=== PATIENT | female | born 1990 | race Caucasian/White ===

== ENCOUNTER → 2022-10-08 16:34 | Outpatient (CLI) | payer OTHER, SELFPAY ==
--- NOTE | 2022-10-08 | DI.US.S_ITS ---
PROCEDURE: US OB LIMITED INDICATIONS: UTERINE SIZE DISCREPENCY. GROWTH, KAY, AND DOPPLERS. OUTSIDE/PRIOR DATING DATA: Last menstrual period (LMP): 01/16/2022. LMP-based estimated date of delivery (MINOO): 10/23/2022. First dating scan (date and location): Not available (in [place]) Estimated date of delivery (MINOO) from first dating scan: Not available. The calculations are made using the working MINOO of 10/23/2022. TECHNIQUE: Real-time scanning was performed of the fetus, with image documentation and biometric measurements. Biophysical profile was also obtained. COMPARISON: None. FINDINGS: General: A single living intrauterine gestation is present. Presentation: Vertex. Placenta: Placental position is posterior. Amniotic fluid index: 10.6 cm, normal range is 5-24 cm. Single deepest vertical pocket is 3.6 cm. heart rate: 337 beats per minute. Maternal cervical canal: Not well seen. biometrics: Biparietal diameter: 34 weeks 4 days Head circumference: 36 weeks 3 days Abdominal circumference: 34 weeks 5 Femur length: 33 weeks 5 days Clinically estimated gestational age: 37 weeks 6 days Composite gestational age from present scan: 34 weeks 6 days Estimated weight and percentile: 2469 g; 4% for gestation age. . Umbilical artery Doppler: S/D 2.4-3.9 IMPRESSION: 1. A single living intrauterine gestation with an estimated gestational age of 33 weeks 5 days based on the current ultrasound. 2. weight 2469 g, 4% for gestation age. The finding is concerning for intrauterine growth restriction. 2. Cervix not visualized. Cannot assess placenta previa. 3. Cord Doppler ultrasound demonstrates preserved diastolic flow. S/D ratio within normal limits. We strive to produce accurate, complete, and clear reports of imaging services. To assist us in improving patient care, this report was composed using standard report templates and voice recognition software. Therefore, it may contain abnormal punctuation, insertions and/or omissions. Occasional wrong-word or sound-alike substitutions may occur. Though we review the report and make efforts to correct it, we do recommend that the report be read carefully in proper context to recognize any text inaccuracies. Dictated by: Stephanie Hogan M.D. on 10/08/2022 at 18:03 Approved by: Stephanie Hogan M.D. on 10/08/2022 at 18:08
== END ==
PROVIDERS: Referring Provider Advanced Practice Midwife; Visit Provider Advanced Practice Midwife
DX: O26.843 Uterine size-date discrepancy, third trimester (principal); Z3A.33 33 weeks gestation of pregnancy
CPT/HCPCS: 76815; 76820

== ENCOUNTER 2022-10-08 16:40 | Inpatient (IN) | payer OTHER, SELFPAY ==
--- NOTE | 2022-10-08 18:22 | PM.OBHP.1 ---
OB HPI Date/Time Date of admission: 10/08/22 Date Patient Seen: 10/08/22 Time Patient Seen: 18:23 History of Present Condition Chief complaint: NST : 1 Para: 0 Estimated Date of Delivery: 10/23/22 Estimated Gestational Age (weeks): 37.6 Narrative: Yissel Brown is a 32 year old female @ 37wks 6days by 7wk US who presented for evaluation of decreased movement. Just came from radiology where she had a growth US for S<D. Transferred into care from [facility] in [place] @ 29wks after PROTEIN LOUNGE move. 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 Indications Indication for induction OB: intra-uterine growth restriction History of Present care: good care, initiated at week # (7), number of visits (4 with CNMs) and pounds weight gain (42) Dating criteria: based on 1st trimester US only Ultrasounds: normal mid trimester US Abnormal ultrasound findings: [place] [address] Ultrasound Report Signed Patient: Yissel Brown MR#: [id number] : 1990 Acct:[id number] Age/Sex: 32 / F Date of Service: 10/08/22 Loc: US Accession Number: [id number] ?? Procedure: US OB limited Ordering Provider: Divya Hogan PROCEDURE:? US OB LIMITED ? INDICATIONS:? UTERINE SIZE DISCREPENCY. GROWTH, KAY, AND DOPPLERS. ? OUTSIDE/PRIOR DATING DATA:? Last menstrual period (LMP):? 01/16/2022.? LMP-based estimated date of delivery (MINOO):? 10/23/2022.? First dating scan (date and location):? Not available (in [place]) Estimated date of delivery (MINOO) from first dating scan:? Not available. The calculations are made using the working MINOO of 10/23/2022.? ? TECHNIQUE:? Real-time scanning was performed of the fetus, with image documentation and biometric measurements.? Biophysical profile was also obtained.? ? COMPARISON:? None. ? FINDINGS:? General:? A single living intrauterine gestation is present.? Presentation:? Vertex.? Placenta:? Placental position is posterior.? Amniotic fluid index:? 10.6 cm, normal range is 5-24 cm.? Single deepest vertical pocket is 3.6 cm. heart rate:? 337 beats per minute.? Maternal cervical canal:? Not well seen. ? biometrics:? Biparietal diameter:? 34 weeks 4 days Head circumference:? 36 weeks 3 days Abdominal circumference:? 34 weeks 5 Femur length:? 33 weeks 5 days Clinically estimated gestational age:? 37 weeks 6 days Composite gestational age from present scan:? 34 weeks 6 days Estimated weight and percentile:? 2469 g; 4% for gestation age. Umbilical artery Doppler:? S/D 2.4-3.9 IMPRESSION:? ?1. A single living intrauterine gestation with an estimated gestational age of 33 weeks 5 days based on the current ultrasound.? 2. weight 2469 g, 4% for gestation age.? The finding is concerning for intrauterine growth restriction. 3. Cervix not visualized.? Cannot assess placenta previa. 4. Cord Doppler ultrasound demonstrates preserved diastolic flow. S/D ratio within normal limits. ? Obstetrical complications: growth restriction Medical complications: none Preadmission Labs Blood type: A (-) negative -: Antibody screen: negative, GBS status: unknown and HBsAG: negative -: Rubella: immune HCT: 37.3 Cell-free DNA: Negative 1 hr GTT: 83 Evaluation Evaluation Baseline heart rate: 140 Variability: Moderate (11-25) monitor accelerations: Present Monitor Decelerations: Absent Contraction Frequency (minutes): 10 Uterine Contraction Intensity: Mild Status: Category l Dilation (cm): 1 Effacement (%): 50 Dilation: 1-2 cm Effacement: 40-50% station: -3 Position of cervix: posterior Consistency: medium Barrera score: 3 Comments: CE poorly tolerated by patient [facility] Medical History (Updated 10/09/22 @ 08:41 by Capri Poe CNM) Ovarian cyst Social History (Updated 10/09/22 @ 08:42 by Capri Poe CNM) marital status: household members: spouse lives independently: Yes housing: house education level: master's degree occupational status: employed Smoking Status: Never smoker Meds Home Medications and Allergies Home Medications Medication Instructions Recorded Confirmed Type No Known Home Medications 10/08/22 10/08/22 History Allergies Allergy/AdvReac Type Severity Reaction Status Date / Time azithromycin [From Zithromax] Allergy Intermediate Hives Verified 10/08/22 20:55 Review of Systems Review of Systems ROS: Yes All systems reviewed with the patient and are negative except as otherwise documented OB Exam Vital signs Blood Pressure: 143/93 Pulse Rate: 82 Temperature: 97.9 F Resp Effort & Inspection: normal respiratory effort and able to speak in complete sentences Auscultation: clear to auscultation bilaterally Cardio Rate: regular rate Rhythm: regular rhythm Heart Sounds: S1 normal and S2 normal Presentation: vertex Objective Labs 10/08/22 20:45 10/08/22 20:45 Assessment and Plan Assessment and Plan Assessment and Plan narrative: A: Term nullipara IOL for growth restriction Cervical ripening indicated Elevated BP without dx of hypertension GBS unknown Cat I FHR P: Consulted who recommended IOL DANILO. Counseled patient on diagnosis of growth restriction with recommendation for delivery in 38th week which is tomorrow and recommendation for admission and cervical ripening tonight. Patient agreed and Consent for IOL obtained. Admit routine orders w/ GBS PCR and preeclampsia panel. Cervidil for cervical ripening overnight. Encouraged rest. Reassess in AM or sooner, PRN.
[2022-10-08] MEDS: DINOPROSTONE VAG (CERVIDIL) 10 MG VAG (20:20)
[2022-10-08 20:51] VITALS: BP 135/85
[2022-10-08 21:01] LABS: Add Manual Diff / Slide Review NO; Basophils Absolute Auto 100 /uL (0-100); Basophils Percent Auto 0.5 % (0-2); Eosinophils Absolute Auto 100 /uL (0-450); Hematocrit 37.7 % (36-46); Hemoglobin 12.7 g/dL (12.0-16.0); Lymphocytes Absolute Auto 2400 /uL (1100-4500); Lymphocytes Percent Auto 19.8 % (25-40); Mean Corpuscular HGB Conc 33.8 % (30-36); Mean Corpuscular Volume 88.6 fL (80-100); Monocytes Absolute Auto 900 /uL (0-900); Monocytes Percent Auto 7.3 % (3-14); Neutrophils Absolute Auto 8700 /uL (1500-7000); Neutrophils Percent Auto 71.4 % (50-75); Platelet Count 205 X10^3/uL (150-400); Red Blood Cell Count 4.25 X10^6/uL (4.0-5.2); Red Cell Distribution Width 12.9 % (11.6-14.8); White Blood Cell Count 12.2 X10^3/uL (4.5-11.0)
[2022-10-08 21:16] LABS: Aspartate Aminotransferase 45 IU/L (14-36); BUN Creatinine Ratio 17.3 (6-22); Blood Urea Nitrogen 13 mg/dL (7-17); Estimated Glomerular Filt Rate > 60 mL/min (>60)
[2022-10-08 23:03] LABS: Strep Grp B PCR NEG for Grp B Strep
[2022-10-08 23:18] LABS: Creatinine Urine Random 57.5 mg/dL; Protein (Total) Urine Random 12 mg/dL (0-12)
[2022-10-09] MEDS: ZOLPIDEM 5 MG TABLET 10 MG PO (00:35)
--- NOTE | 2022-10-09 08:22 | PM.OBPNLAB ---
Date/Time Date Patient Seen: 10/09/22 Time Patient Seen: 08:22 Pain Control Pain control: other (NO2) Comments: Began to contract uncomfortably overnight and got in the tub for hydrotherapy at 0600. Breathing through contractions at that time and did achieve some relief. Got out of the tub at 0800 and Cervidil removed by RN d/t maternal discomfort and Q1-2 minute contractions, not meeting criteria for tachysystole. Now laboring on her side in the bed utilizing NO2 with minimal pain relief. Supervisor Tank Cleaning en route. is on his way and will arrive at [place] at 5pm today. Patient is planning an epidural, but not ready for it yet. VS:BP 133/90, HR 85bpm, T 36.7C Temporal Labs: GBS PCR- NEGATIVE, Preeclampsia labs negative, but AST, Pr:Cr and creatinine are trending up. Pelvic Exam Dilation (cm): 2 Effacement (%): 90 station: -2 Amniotic membrane status: Intact Contractions Contractions on admission: irregular Monitor mode: External Pitocin rate (mU/min): 0 Contraction frequency (min): 1 Contraction duration (min): 1 Contraction intensity: Moderate Status status: Category l Heart Rate Baseline: 150 Monitor Accelerations: Present Monitor Decelerations: Absent Monitor Variability: Moderate Assessment and Plan Assessment: induction ongoing (FGR and now GHTN) Comments: Expectant management at this time. If contractions space, will start pitocin. Labor support, PRN. Epidural when requested. Reassess in 4 hours or sontenisha, HONORION.
[2022-10-09] MEDS: ONDANSETRON 4 MG/2 ML INJ IV (08:28)
[2022-10-09] MEDS: LACTATED RINGERS 1,000 ML 100 ML IV (08:29)
[2022-10-09] MEDS: fentaNYL 100 MCG/2 ML INJ IV (08:37)
[2022-10-09 08:50] VITALS: BP 143/93; PULSE 82; TEMP 36.6
--- NOTE | 2022-10-09 14:38 | PM.OBPNLAB ---
Date/Time Date Patient Seen: 10/09/22 Time Patient Seen: 14:15 Pain Control Pain control: epidural Comments: Comfortable with an epidural, remains anxious about and her getting here in time. She would like to wait for her to arrive to have the baby.Was feeling a lot of rectal pressure, then had SROM for clear fluid at 1300, followed by complete relief of rectal pressure. Telephony Engineer is supportive at her side. VS: BP 119/69, HR 78bpm, T 36.6C Temporal Pelvic Exam Dilation (cm): 10 Effacement (%): 100 station: -1 Amniotic membrane status: Intact Comments: Caput at 0 station Contractions Monitor mode: External Pitocin rate (mU/min): 0 Contraction frequency (min): 4 Contraction duration (min): 1 Contraction pattern: Regular Contraction intensity: Strong/Firm Status status: Category l Heart Rate Baseline: 150 Monitor Accelerations: Present Monitor Decelerations: Absent Monitor Variability: Moderate Assessment and Plan Assessment: active labor Plan: continuous present management Comments: Given high station, offered for patient to labor down until rectal pressure returns. Patient continues to desire to wait as long as possible as long as she and her baby sardahlia safe. Will consider initiating pushing sooner, PRN. Reassess in 2 hours or sooner, PRN.
[2022-10-09] MEDS: FENT 2MCG/ML BUPIV 0.125% EPI 200 MCG/100 ML PLAST..BAG 8 MCG EPIDURAL (16:48)
--- NOTE | 2022-10-09 17:44 | PM.OBPNLAB ---
Date/Time Date Patient Seen: 10/09/22 Time Patient Seen: 17:30 Pain Control Pain control: epidural Comments: Spoke with patient at 1530 and she was not feeling any rectal pressure and declined exam. Now feeling increased rectal pressure and consents to cervical exam. 's plan now lands in 35 minutes. VS: BP 125/69mmHg, HR 94bpm, T 36.6C Temporal Pelvic Exam Dilation (cm): 10 Effacement (%): 100 station: 0 Amniotic membrane status: Intact Comments: Caput at +1 Leaking clear fluid Contractions Monitor mode: External Pitocin rate (mU/min): 0 Contraction frequency (min): 3 Contraction pattern: Regular Contraction intensity: Strong/Firm Status status: Category ll Heart Rate Baseline: 150 Monitor Accelerations: Present Monitor Decelerations: Variable Monitor Variability: Moderate Assessment and Plan Assessment: active labor Plan: continuous present management Comments: Slow descent of vertex noted with laboring down. Will continue to monitor closely and initiate pushing if indicated by FHR or maternal discomfort.
[2022-10-09 19:03] LABS: HIV 1 & 2 Ab/Ag 4th Gen Combo NEGATIVE (NEGATIVE)
[2022-10-09] MEDS: CALCIUM CARBONATE 500 MG TAB 1000 MG PO (19:45)
--- NOTE | 2022-10-09 21:40 | PM.OBPRVD ---
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 Coaching, encouragement and strong maternal efforts led to steady descent of vertex. Gradual tachycardia (Max 180bpm) was noted during second stage with deepening decelerations during pushing and RT was called to standby for the . FOB arrived 30 minutes prior to the . NSVB of a viable baby boy in LIBAN position, sommersaulted through a single loose nuchal cord, over an intact vagina and perineum. was placed on maternal abdomen for drying and stimulation. Spontaneous cry within 20 seconds and no NRP indicated. 30 units of pitocin in 500mL LR was started at 250mL/hr for AMTSl. After cessation of pulsation, the cord was double clamped by CNM and cut by FOB. Gentle cord traction and a single maternal push led to spontaneous, Schultze delivery of an apparently inatct placenta, membranes and 3VC. Fundus immediately firm and bleeding minimal. QBL 175mL. Both mother and baby stable and skin to skin as I left eth room. Baby 1: Infant gender: Male Presentation: vertex Position: Right Occiput Anterior Placenta delivery description: Spontaneous Cord Vessel Description: 3 Vessels, Nuchal Cord and Loose score (1 min): 7 score (5 min): 8 weight: 2.64 kg Plan for aftercare: Routine care
[2022-10-09] MEDS: KETOROLAC 30 MG/ML VIAL IV (22:07)
[2022-10-10] MEDS: DERMOPLAST SPRAY 20% 60 ML 1 SPRAY TOP (02:58)
[2022-10-10] MEDS: ACETAMINOPHEN 325 MG TABLET 650 MG PO ×4 (02:58→22:51)
[2022-10-10] MEDS: IBUPROFEN 600 MG TABLET PO ×4 (03:27→22:50)
--- NOTE | 2022-10-10 22:20 | PM.OBPN.1 ---
Subjective - OB Subjective Patient comments: pain well controlled, tolerating diet and other (anxious about removal of catheter, possible reinsertion, voiding. ) [place] baby status: doing well and nursing well [place] feeding status: exclusively breast feeding Narrative: Yissel found insertion of brown catheter very uncomfortable and is nervous that it will be taken out and she won't be able to pee. Reassured to know that bladder dysfunction and retraining is common with early women. Baby well, so far that's going well. Denies nipple pain and all pain is well managed with pain medication. Bleeding light; has not changed pad in > 6 hours. Date Patient Seen: 10/10/22 Time Patient Seen: 17:45 Interval history: rounds r/to recent and urinary retention. Brown catheter in place, draining pale urine. Exam Vital Signs (past 8 hours): BP 135/89 HR 65 T 98.3 F RR 18 Other: Fundus firm U-1 Bleeding light without clots Psych Appearance: grossly normal Mental Status: mental status grossly normal Affect: anxious affect Objective Labs 10/08/22 20:45 10/08/22 20:45 Labs: Laboratory Results - last 24 hr 10/10/22 06:02 Maternal Bleed Negative Assessment & Plan Assessment and Plan (1) (normal spontaneous vaginal delivery): Problem details: pain well managed. Status: Acute (2) Encounter for care and examination of lactating mother: Status: Acute Assessment and plan: recommend responsively. Reviewed normal behavior. (3) Acute urinary retention: Status: Acute Assessment and plan: Brown catheter removed 1830. Close monitoring of voiding overnight. Plan day: 1 plan OB: routine care Comments: Rbown catheter removed at 1830. Recommend attempting to void in 2-3 hours. Review normal bladder retraining/function and what to expect. If voids normally, anticipate discharge in AM. Time Spent With Patient Time: Total time spent is greater than 50% in coordination of care (as documented) at patient's floor/unit and/or counseling patient: Time with patient: 15-24 minutes
[2022-10-11] MEDS: IBUPROFEN 600 MG TABLET PO ×2 (04:41→10:23)
[2022-10-11] MEDS: ACETAMINOPHEN 325 MG TABLET 650 MG PO ×2 (04:42→10:23)
--- NOTE | 2022-10-11 08:50 | PM.OBDS.1 ---
Discharge Providers Provider Date of admission: 10/08/22 16:40 Discharge Date: 10/11/22 Consults: 10/10/22 21:24 Consult to Clinical Research Tech Routine Comment: Discharge provider: Capri Poe CNM Summary Hospital Course Date Patient Seen: 10/11/22 Time Patient Seen: 08:50 Diagnoses: O80, R33.9 Hospital Course: PPD2 s/p NSVB with urinary retention. Reyes removed last night at 1830 and patient have been voiding independently overnight. Tolerating a general diet. Ambulating in room and independently. Pain is well controlled with PO medication. Vaginal bleeding is light without clots. remains present and supportive. Eager for discharge to home. Peripartum Data Delivery Method: Natural Vaginal Laceration Description: None Episiotomy description: None Procedures: O80 complications: other (urinary retention- now resolved) Discharge Diagnosis (1) (normal spontaneous vaginal delivery): Status: Acute Problem Details: routine course (2) Encounter for care and examination of lactating mother: Status: Acute Problem Details: without complications (3) Acute urinary retention: Status: Acute Problem Details: resolved (4) Gestational hypertension: Status: Acute Problem Details: BPs stable, not in HTN range since day of delivery Status at Discharge Cognitive/behavioral status at discharge: oriented and calm Functional status at discharge: independent ambulation Overall status at discharge: patient is progressing back to baseline Time Spent with Patient Time attestation: Total time spent providing and/or coordinating discharge services: Time spent: Less than 30 minutes Objective Labs 10/08/22 20:45 10/08/22 20:45 Exam Vital Signs (past 8 hours): BP 132/89, HR 75bpm, RR 16/min, T 97.7F Temporal Other: Fundus firm @ U-1, lochia light, no clots. Perineum intact, minimla edema. Discharge Plan Discharge Plan Patient Disposition: Home Discharge orders & Medications Prescriptions: New ibuprofen 600 mg Tablet 600 mg PO Q6HR PRN (Reason: Pain, Mild (1-3)) 14 Days Qty: 60 0RF No Action No Known Home Medications Follow up/Referrals: Capri Poe CNM [[employer]] - (Follow-up at 2wks and 6 wks , as scheduled) Diet/Activity/Treatments Diet: Diet as Tolerated and Regular Activity: pelvic rest x 6 weeks Skin/Wound/Dressing Care Report to your healthcare provider any signs of infection, such as:: chills, fever, increased pain, unusual drainage and unusual redness Visit Report/Discharge Packet Instructions: DI for Depression Stand Alone Forms: Patient Portal/API, Stroke Signs & Symptoms
[2022-10-11] MEDS: RHO(D) IMMUNE GLOBULIN 1,500 UNIT SYRINGE 1500 UNIT IM (10:58)
[2022-10-12 08:51] LABS: RPR Screen Non Reactive (Non Reactive)
== END 2022-10-11 12:10 | disposition home or self-care (01) | DRG 806 ==
PROVIDERS: Nurse Practitioner Obstetrics & Gynecology; Admitting Provider Advanced Practice Midwife; Referring Provider Advanced Practice Midwife; Visit Provider Advanced Practice Midwife
DX: O36.5930 Maternal care for other known or suspected poor fetal growth, third trimester, not applicable or unspecified (principal); O36.0130 Maternal care for anti-D [Rh] antibodies, third trimester, not applicable or unspecified; Z37.0 Single live birth; Z67.11 Type A blood, Rh negative; Z3A.37 37 weeks gestation of pregnancy; O76 Abnormality in fetal heart rate and rhythm complicating labor and delivery; O13.4 Gestational [pregnancy-induced] hypertension without significant proteinuria, complicating childbirth; O99.893 Other specified diseases and conditions complicating puerperium; R33.8 Other retention of urine; O26.843 Uterine size-date discrepancy, third trimester; Z3A.33 33 weeks gestation of pregnancy
CPT/HCPCS: 36415; 59025; 59050; 59200; 76815; 76820; 82570; 84156; 84450; 84550; 85025; 85461; 86592; 86850; 86870; 86900; 86901; 87081; 87389; 87653; G0379; J1885; J2270; J2405; J2790; J3010

== ENCOUNTER → 2023-10-20 08:39 | Outpatient (CLI) | payer OTHER, SELFPAY ==
--- NOTE | 2023-10-20 08:41 | DI.US.S_ITS ---
PROCEDURE: US OB >= 14 WEEKS FETUS INDICATIONS: anatomy. OUTSIDE/PRIOR DATING DATA: Last menstrual period (LMP): 05/31/2023. LMP-based estimated date of delivery (MINOO): 03/06/2024. First dating scan (date and location): Not available Estimated date of delivery (MINOO) from first dating scan: Not available. TECHNIQUE: Real-time scanning was performed of the fetus, with image documentation and biometric measurements. Endovaginal scanning: Not performed COMPARISON: None. FINDINGS: General: A single living intrauterine gestation is present. Presentation: Breech. Placenta: Placental position is anterior , without previa. Amniotic fluid index: 13.3cm, normal range is 5-24 cm. Single deepest vertical pocket is 3.9 cm. heart rate: 160 beats per minute. Maternal cervical canal: 3.7 cm long. Normal lower limit is 2.5 cm. biometrics: Biparietal diameter: 20 weeks 1 day Head circumference: 20 weeks 2 days Abdominal circumference: 20 weeks 3 days Femur length: 20 weeks 1 day Clinically estimated gestational age: 20 weeks 2 days Composite gestational age from present scan: 20 weeks 2 day Estimated weight and percentile: 244 g; 45% for gestational age. Anatomic survey: Neuro: Ventricles are non-dilated at less than 10 mm. Cisterna magna is normal at 3-11 mm. Cerebellum is normal in size and morphology. Nuchal skin fold: Normal at less than 6 mm between 14-21 weeks gestational age. Face: Nose and lips, facial profile are normal. Spine: No evidence for spina bifida. Heart: 4-chambered heart is present, with normal ventricular outflow tracts. Diaphragm: Diaphragm is intact. Stomach: Left-sided stomach is present. Kidneys: No hydronephrosis. Normal is less than 5 mm in 2nd trimester, less than 7 mm in 3rd trimester. Cord: 3-vessel cord has orthotopic insertion. Bladder: Normal in size. Extremities: All 4 extremities identified. IMPRESSION: 1. A single living intrauterine gestation with appropriate interval growth. 2. Normal anatomic survey. 3. The estimated weight is 45% for gestational age. 4. Normal KAY. We strive to produce accurate, complete, and clear reports of imaging services. To assist us in improving patient care, this report was composed using standard report templates and voice recognition software. Therefore, it may contain abnormal punctuation, insertions and/or omissions. Occasional wrong-word or sound-alike substitutions may occur. Though we review the report and make efforts to correct it, we do recommend that the report be read carefully in proper context to recognize any text inaccuracies. Dictated by: Stephanie Hogan M.D. on 10/20/2023 at 16:24 Approved by: Stephanie Hogan M.D. on 10/21/2023 at 8:13
== END ==
LOC: US 08:40
PROVIDERS: Referring Provider Advanced Practice Midwife; Visit Provider Advanced Practice Midwife
DX: O32.1XX0 Maternal care for breech presentation, not applicable or unspecified (principal); Z3A.20 20 weeks gestation of pregnancy
CPT/HCPCS: 76811

== ENCOUNTER → 2023-12-30 08:35 | Outpatient (CLI) | payer OTHER, SELFPAY ==
--- NOTE | 2023-12-30 08:37 | DI.US.S_ITS ---
PROCEDURE: US OB LIMITED INDICATIONS: Growth Scan OUTSIDE/PRIOR DATING DATA: Last menstrual period (LMP): 05/25/2023. LMP-based estimated date of delivery (MINOO): 03/06/2024. First dating scan (date and location): Not reported. TECHNIQUE: Real-time scanning was performed of the fetus, with image documentation and biometric measurements. Endovaginal scanning: Not performed COMPARISON: [facility], OB LIMITED, 10/08/2022, 16:59. FINDINGS: General: A single living intrauterine gestation is present. Presentation: Vertex. Placenta: Placental position is anterior , without previa. Amniotic fluid index: 13.8 cm, normal range is 5-24 cm. Single deepest vertical pocket is 4.8 cm. heart rate: 160 beats per minute. Maternal cervical canal: 4.1 cm long. Normal lower limit is 2.5 cm. biometrics: Biparietal diameter: 7.5 cm, 30 weeks 1 day Head circumference: 28.7 cm, 31 weeks 4 days Abdominal circumference: 25.8 cm, 30 weeks 0 days Femur length: 5.4 cm, 28 weeks 4 days Clinically estimated gestational age: 30 weeks 3 days Composite gestational age from present scan: 30 weeks 1 day Estimated weight and percentile: 1439 g, 17th percentile Other: Not applicable. IMPRESSION: Single living intrauterine at 30 weeks 3 days, MINOO 03/06/2024 based on LMP. Estimated weight is 1439 g, 17th percentile. We strive to produce accurate, complete, and clear reports of imaging services. To assist us in improving patient care, this report was composed using standard report templates and voice recognition software. Therefore, it may contain abnormal punctuation, insertions and/or omissions. Occasional wrong-word or sound-alike substitutions may occur. Though we review the report and make efforts to correct it, we do recommend that the report be read carefully in proper context to recognize any text inaccuracies. Dictated by: Agustin Gifford M.D. on 12/30/2023 at 11:23 Approved by: Agustin Gifford M.D. on 12/30/2023 at 11:26
== END ==
PROVIDERS: Referring Provider Advanced Practice Midwife; Visit Provider Advanced Practice Midwife
DX: Z36.4 Encounter for antenatal screening for fetal growth retardation (principal); Z3A.30 30 weeks gestation of pregnancy
CPT/HCPCS: 76815

== ENCOUNTER 2024-02-22 05:32 | Inpatient (IN) | payer OTHER, SELFPAY ==
--- NOTE | 2024-02-22 05:50 | PM.OBHP.1 ---
OB HPI Date/Time Date of admission: 02/22/24 Date Patient Seen: 02/22/24 Time Patient Seen: 05:50 History of Present Condition Chief complaint: LABOR : 2 Para: 1 Estimated Date of Delivery: 03/06/24 Estimated Gestational Age (weeks): 38.1 Narrative: Yissel Arriaga is a 33 year old female @ 38wks 1 day by sure LMP concordant with 8wk US presents for evaluation of labor. Has has contractions since midnight that have steadily increased in frequency and intensity, just got strong as she was arriving. Uncomplicated care with CNMs. Planning an epidural. Accompanied by her supportive . History of Present care: good care, initiated at week # (8), number of visits (8) and pounds weight gain (25) Dating criteria: based on 1st trimester US only Ultrasounds: normal mid trimester US and other (30wk growth- 17th%) Preadmission Labs Blood type: A (-) negative -: Antibody screen: negative, GBS status: negative, HBsAG: negative, HIV: negative and RPR/VDLR: negative -: Chlamydia screen: not detected and Gonorrhea screen: not detected -: Rubella: immune and Varicella: immune HCT: 36.7 HCAB: negative Cell-free DNA: negative, XY 1 hr GTT: 117 Prior (ies) History: 10/09/2022: NSVB @ 38.0wks, 9hr labor, epidural, intact, 5#13oz male (Trip), IOL for IUGR Evaluation Evaluation Baseline heart rate: 135 Variability: Moderate (11-25) monitor accelerations: Present Monitor Decelerations: Absent Contraction Frequency (minutes): 4 Uterine Contraction Intensity: Moderate Status: Category l Dilation (cm): 4 Effacement (%): 75 Dilation: 3-4 cm Effacement: 60-70% station: -1 Position of cervix: posterior Consistency: soft Barrera score: 8 [facility] Medical History Ovarian cyst Social History marital status: household members: spouse lives independently: Yes housing: house education level: master's degree occupational status: employed Smoking Status: Never smoker Meds Home Medications and Allergies Allergies Allergy/AdvReac Type Severity Reaction Status Date / Time azithromycin [From Zithromax] Allergy Intermediate Hives Verified 10/08/22 20:55 Review of Systems Review of Systems ROS: Yes All systems reviewed with the patient and are negative except as otherwise documented OB Exam Vital signs Blood Pressure: 125/84 Pulse Rate: 75 Temperature: 97.7 F Resp Effort & Inspection: normal respiratory effort and able to speak in complete sentences Auscultation: clear to auscultation bilaterally Cardio Rate: regular rate Rhythm: regular rhythm Presentation: vertex Objective Labs 02/22/24 06:25 Assessment and Plan Assessment and Plan Assessment and Plan narrative: A: Term primipara Approaching active labor No indication for antibiotics at this time Rh negative Cat I FHR P: Admit, routine orders. Expectant management. Labor support PRN. Epidural when requested. Reassess in 4 hours or sooner, PRN. Time-Based Coding :: [TOTAL MINUTES] spent with patient and on the chart (including review of chart, obtaining history, exam, reviewing outside data, placing orders, documenting exam and treatment plan, and counseling patient) on [DATE].
[2024-02-22 05:59] VITALS: BP 125/84; PULSE 75; TEMP 36.5
[2024-02-22 06:36] LABS: Add Manual Diff / Slide Review NO; Basophils Absolute Auto 100 /uL (0-100); Basophils Percent Auto 0.8 % (0-2); Eosinophils Absolute Auto 200 /uL (0-450); Eosinophils Percent Auto 1.4 % (2-4); Hematocrit 40.3 % (36-46); Hemoglobin 13.9 g/dL (12.0-16.0); Lymphocytes Absolute Auto 2000 /uL (1100-4500); Lymphocytes Percent Auto 15.4 % (25-40); Mean Corpuscular HGB Conc 34.5 % (30-36); Mean Corpuscular Hemoglobin 30.1 PG (26-34); Mean Corpuscular Volume 87.3 fL (80-100); Monocytes Absolute Auto 800 /uL (0-900); Neutrophils Absolute Auto 10100 /uL (1500-7000); Neutrophils Percent Auto 76.4 % (50-75); Platelet Count 232 X10^3/uL (150-400); Red Blood Cell Count 4.61 X10^6/uL (4.0-5.2); White Blood Cell Count 13.3 X10^3/uL (4.5-11.0)
--- NOTE | 2024-02-22 07:13 | PM.AN.REGBLK ---
Regional Block Pre-procedure Procedure: Continuous Lumbar Epidural for L&D Attending OB provider: Capri Poe PMH/ROS narrative: ROS negative. , 38 1/7 weeks PSH/Anesthesia history narrative: Negative Exam narrative: Mall 2, good dentition, no concerns ASA Class: II Labs: Hct 40.3 % (36-46) 02/22/24 06:25 Plt Count 232 X10^3/uL (150-400) 02/22/24 06:25 Medications: Current Medications Generic Name Dose Route Start Last Admin Trade Name Freq PRN Reason Stop Dose Admin Calcium Carbonate 1,000 mg 02/22/24 05:45 Calcium Carbonate 500 Mg Tab PO Q2HR PRN Dyspepsia Carboprost Tromethamine 250 mcg 02/22/24 05:45 Carboprost 250 Mcg/Ml Ampul IM Q90M PRN Bleeding Fentanyl 100 mcg 02/22/24 05:45 Fentanyl 100 Mcg/2 Ml Inj IV Q1H PRN Pain, Severe (7-10) Oxytocin/Lactated Ringer's 30 unit in 500 mls @ 200 mls/hr 02/22/24 05:45 Oxytocin Premix IV CONT PRN Bleeding Protocol Tranexamic Acid 1,000 mg/ 100 mls @ 600 mls/hr 02/22/24 05:45 Sodium Chloride IV NOW PRN Bleeding Lactated Ringer's 1,000 mls @ 100 mls/hr 02/22/24 05:45 Lactated Ringers IV 02/22/24 15:44 CONT TATO Lidocaine HCl 20 ml 02/22/24 05:45 Lidocaine 1% 20 Ml INJ INTRA-OP PRN Post Delivery Methylergonovine Maleate 0.2 mg 02/22/24 05:45 Methylergonovine 0.2 Mg Tablet PO Q6HR PRN Heavy Bleeding Methylergonovine Maleate 0.2 mg 02/22/24 05:45 Methylergonovine 0.2 Mg/Ml Vial IM NOW PRN Bleeding Mineral Oil 30 ml 02/22/24 05:45 Mineral Oil 30 Ml Udc TOP PRN PRN Version Misoprostol 800 mcg 02/22/24 05:45 Misoprostol 200 Mcg Tablet MS NOW PRN Bleeding Misoprostol 400 mcg 02/22/24 05:45 Misoprostol 200 Mcg Tablet SL NOW PRN Bleeding Naloxone HCl 0.2 mg 02/22/24 05:45 Naloxone 0.4 Mg/Ml Vial IV Q2MIN PRN Opiate Reversal Ondansetron HCl 4 mg 02/22/24 05:45 Ondansetron 4 Mg/2 Ml Inj IV Q4HR PRN Nausea And Vomiting Oxytocin 10 unit 02/22/24 05:45 Oxytocin 10 Unit/Ml Vial IM NOW PRN Bleeding Allergies: Allergies Allergy/AdvReac Type Severity Reaction Status Date / Time azithromycin [From Zithromax] Allergy Intermediate Hives Verified 10/08/22 20:55 Procedure Insertion date: 02/22/24 Insertion time: 06:52 Prep/Local: 1% lidocaine Interspace: L4-5 Patient position: sitting Needle: 17 gauge Tuohy Loss of resistance with: saline DOLLY at (cm): 6 Catheter placed at SKIN (cm): 13 Catheter in SPACE (cm): 7 Sensory level: T10 Insertion: No CSF, No Blood, No Paresthesia with insertion, No Paresthesia with injection and No Test dose reaction Initial Medications TEST DOSE time: 06:55 BOLUS DOSE time: 07:06 BOLUS DOSE (mL): 5 BOLUS DOSE med: other Infusion INFUSION: 0.125% bupivacaine and with fentanyl 2 mcg/mL Initial rate (mL/hr): 10 Post-procedure Anesthesia date START: 02/22/24 Anesthesia time START: 06:52 Anesthesia date END: 02/22/24 Anesthesia time END: 11:53 Post-procedure Anesthesia Assessment: Yes CV function: HR/BP stable, Yes Resp function: RR/sat/airway adequate, Yes Post-op hydration adequate, Yes Pain control adequate, Yes Nausea & vomiting absent, Yes Temperature > 36 C, Yes Mental status appropriate and Yes Anesthesia complications
[2024-02-22 07:30] VITALS: BP 119/68
[2024-02-22] MEDS: CALCIUM CARBONATE 500 MG TAB 1000 MG PO (08:59)
--- NOTE | 2024-02-22 11:05 | PM.OBPNLAB ---
Date/Time Date Patient Seen: 02/22/24 Time Patient Seen: 11:00 Pain Control Pain control: epidural Comments: Received her epidural immediately upon admission and has been able to rest comfortably. Occasional gushes of clear fluid, now with some bloody show. Supportive partner at her side. VS: BP 113/70, HR 78, T 36.2C Temporal Pelvic Exam Dilation (cm): 9 Effacement (%): 90 station: -1 Amniotic membrane status: Leaking (clear) Contractions Contraction intensity: Moderate Status status: Category l Heart Rate Baseline: 135 Monitor Accelerations: Present Monitor Decelerations: Absent Monitor Variability: Moderate Assessment and Plan Assessment: active labor Plan: continuous present management (anticipate 2nd stage soon)
[2024-02-22] MEDS: OXYTOCIN PREMIX 30 UNIT/500 ML PLAST..BAG 200 UNIT IV (11:55)
--- NOTE | 2024-02-22 12:15 | PM.OBPRVD ---
Labor & Delivery Delivery date: 02/22/24 Intrapartal Events: None Cervical ripening method: none Induction method: none Delivery monitor: external FHT and external uterine Route of delivery: Episiotomy description: None L&D Laceration Description: None Quantitative Blood Loss: 100 Anesthesia Type: Epidural Narrative: Labor progressed well without augmentation, adequate epidural and frequent position change with peanut ball. Yissel started pushing at complete, complete and 0 station and pushed well for a quick 2nd stage with coaching and encouragement. NSVB of male occurred in semi-Folwer's position. delivered LIMA through single lose nuchal cord with easy delivery of the shoulders. [place] was placed on maternal abdomen for drying and skin to skin. Apgars 9/9. 30ml Pitocin in 500ml of LR given at 300ml/hr for active management. After cessation of pulsation, cord was clamped by CNM and cut by FOB. Cord blood sample was collected. Gentle cord traction lead to [place] deliver of intact placenta with 3 vessel cord. Fundus immediately firm and bleeding scant. Inspection of vagina and perineum revealed no lacerations. Mom and baby stable and skin to skin. [place] Baby 1: Infant gender: Male Presentation: vertex Position: Left Occiput Anterior Cord Vessel Description: 3 Vessels, Nuchal Cord (x1) and Loose score (1 min): 9 score (5 min): 9 weight: 2.89 kg Plan for aftercare: Routine care
[2024-02-22] MEDS: KETOROLAC 30 MG/ML VIAL IV (13:19)
[2024-02-22] MEDS: IBUPROFEN 600 MG TABLET PO (19:24)
[2024-02-23] MEDS: IBUPROFEN 600 MG TABLET PO (07:35)
--- NOTE | 2024-02-23 08:01 | PM.OBDS.1 ---
Discharge Providers Provider Date of admission: 02/22/24 05:32 Discharge Date: 02/23/24 Consults: 02/22/24 05:45 Consult to Anesthesiology Urgent Comment: Consulting Provider: Kassie Montiel Reason for consultation: Epidural Has provider been notified: No 02/23/24 12:13 Consult to Regulatory Services Consultant Routine Comment: Discharge provider: Capri Poe CNM Summary Hospital Course Date Patient Seen: 02/23/24 Time Patient Seen: 08:03 Diagnoses: O80 Hospital Course: [place] labor admission led to NSVB with no lacerations. PPD1: Stable and eager for discharge. Voiding, ambulating and independently. Tolerating a general diet. Minimal pain is well controlled with PO medication. Vaginal bleeding is mild to moderate without clots. remains supportive at her side and family is in town visiting to help. Peripartum Data Infant Delivery Method: Natural Vaginal Laceration Description: None Episiotomy description: None 1: Gender: Male Disposition of : home Discharge Diagnosis (1) Encounter for full-term uncomplicated delivery: Status: Acute Status at Discharge Cognitive/behavioral status at discharge: oriented and calm Functional status at discharge: independent ambulation Overall status at discharge: patient is progressing back to baseline Time Spent with Patient Time attestation: Total time spent providing and/or coordinating discharge services: Time spent: Less than 30 minutes Specific discharge activities: teaching Objective Labs 02/22/24 06:25 Labs: Laboratory Results - last 24 hr 02/22/24 06:25 Antibody Screen Negative Rhogam NOT indicated Exam Vital Signs (past 8 hours): 137/87, HR 83bpm, RR 15, T 98.5F Temporal Other: Fundus firm @ u-1, lochia light, perineum intact Psych Appearance: grossly normal and well kempt Mental Status: mental status grossly normal Speech and Movement: speech and movement normal Affect: normal affect Discharge Plan Discharge Plan Patient Disposition: Home Discharge orders & Medications Prescriptions: New ibuprofen 600 mg Tablet 600 mg PO Q6HR PRN (Reason: Pain, Mild (1-3)) 14 Days Qty: 60 0RF Follow up/Referrals: Capri Poe CNM [[employer]] - (BP check 02/27/24 @ 10:30am 2wk phone call 03/08/24 @ 1:15pm 6wk office visit 04/05/24 @ 9:45am) Diet/Activity/Treatments Diet: Diet as Tolerated and Regular Activity: bed rest x 2 weeks, no heavy lifting for 4 weeks, pelvic rest x 6 weeks Skin/Wound/Dressing Care Report to your healthcare provider any signs of infection, such as:: chills, fever, increased pain, unusual drainage and unusual redness Visit Report/Discharge Packet Instructions: DI for Depression Stand Alone Forms: Discharge: Care, Patient Portal/API, Stroke Signs & Symptoms
== END 2024-02-23 12:40 | disposition home or self-care (01) | DRG 807 ==
PROVIDERS: Admitting Provider Nurse Practitioner Obstetrics & Gynecology; Referring Provider Nurse Practitioner Obstetrics & Gynecology; Visit Provider Nurse Practitioner Obstetrics & Gynecology
DX: O80 Encounter for full-term uncomplicated delivery (principal); Z37.0 Single live birth; Z3A.38 38 weeks gestation of pregnancy
CPT/HCPCS: 36415; 59050; 85025; 86850; 86900; 86901; G0379; J1885; J2590